=== PATIENT | male | born 2000 | race Hispanic/Latino ===

== ENCOUNTER 2021-06-20 14:26 | Emergency (ER) | payer OTHER ==
[2021-06-20 15:45] LABS: Urine Blood Negative (Negative); Urine Glucose Negative (Negative); Urine Protein Negative (Negative); Urine Specific Gravity >=1.030 (1.005-1.030)
--- NOTE | 2021-06-20 15:46 | ER ---
Nurse's Notes [facility] Name: Richard Leavitt Age: 21 yrs Sex: Male : 2000 Arrival Date: 06/20/2021 Time: 14:30 Bed Treatment Private MD: Diagnosis: Sciatica, right side Presentation: 06/20 14:54 Chief complaint: Patient states: "For a few days I have had right low back pain and it ab2 shoots down my right leg to my knee and sometimes to my foot." Pt denies any injury. Coronavirus screen: Vaccine status: Patient reports being unvaccinated. Client denies travel out of the [place] in the last 14 days. At this time, the client does not indicate any symptoms associated with coronavirus-19. Ebola Screen: Patient negative for fever greater than or equal to 101.5 degrees Fahrenheit, and additional compatible Ebola Virus Disease symptoms Patient denies exposure to infectious person. Patient denies travel to an Ebola-affected area in the 21 days before illness onset. No symptoms or risks identified at this time. Initial Sepsis Screen: Does the patient meet any 2 criteria? No. Patient's initial sepsis screen is negative. Does the patient have a suspected source of infection? No. Patient's initial sepsis screen is negative. Risk Assessment: Do you want to hurt yourself or someone else? Patient reports no desire to harm self or others. Onset of symptoms is unknown. 14:54 Method Of Arrival: Ambulatory ab2 14:54 Acuity: GEMMA 4 ab2 Triage Assessment: 14:55 General: Appears in no apparent distress. uncomfortable, Behavior is calm, cooperative, ab2 appropriate for age. Pain: Complains of pain in right low back Pain radiates to right leg Pain currently is 10 out of 10 on a pain scale. Neuro: Level of Consciousness is awake, alert, obeys commands, Oriented to person, place, time, situation, Appropriate for age Mortgage Operations Manager are equal bilaterally Moves all extremities. Gait is steady, Speech is normal, Facial symmetry appears normal, Pupils are PERRLA, Intact. Cardiovascular: No deficits noted. Denies chest pain, shortness of breath, Patient's skin is warm and dry. Respiratory: Airway is patent Respiratory effort is even, unlabored, Respiratory pattern is regular, symmetrical. GI: No deficits noted. No signs and/or symptoms were reported involving the gastrointestinal system. : No deficits noted. No signs and/or symptoms were reported regarding the genitourinary system. Derm: Skin is intact, Skin is Skin is pink, warm \\T\\ dry. Musculoskeletal: Range of motion: intact in all extremities, Reports pain in back. Historical: - Allergies: 14:55 No Known Allergies; ab2 - PMHx: 14:55 None; ab2 - PSHx: 14:55 None; ab2 - Immunization history:: Adult Immunizations up to date. - Social history:: Smoking status: Patient denies any tobacco usage or history of. Screenin:00 Abuse screen: Denies threats or abuse. Denies injuries from another. Nutritional ab2 screening: No deficits noted. Tuberculosis screening: No symptoms or risk factors identified. Fall Risk None identified. Assessment: 16:00 General: Appears in no apparent distress. comfortable, Behavior is calm, cooperative, ab2 appropriate for age. Pain: Complains of pain in right hamstring and right leg. Neuro: Level of Consciousness is awake, alert, obeys commands, Oriented to person, place, time, situation, Appropriate for age Mortgage Operations Manager are equal bilaterally Moves all extremities. Gait is steady, Speech is normal, Facial symmetry appears normal. Cardiovascular: No deficits noted. Denies chest pain, shortness of breath. Respiratory: Airway is patent Respiratory effort is even, unlabored, Respiratory pattern is regular, symmetrical. GI: No deficits noted. No signs and/or symptoms were reported involving the gastrointestinal system. : No deficits noted. No signs and/or symptoms were reported regarding the genitourinary system. Vital Signs: 14:54 BP 138 / 96; Pulse 77; Resp 16; Temp 98.1(TE); Pulse Ox 100% on R/A; Weight 79.38 kg; ab2 Height 5 ft. 7 in. (170.18 cm); Pain 10/10; 16:01 BP 127 / 83; Pulse 73; Resp 16; Pulse Ox 99% on R/A; ab2 14:54 Body Mass Index 27.41 (79.38 kg, 170.18 cm) ab2 ED Course: 14:30 Patient arrived in ED. ds1 14:55 Triage completed. ab2 14:56 Arm band placed on right wrist. ab2 15:19 Geoffrey Vasquez MD is Attending Physician. [facility] 15:19 Annabel Malone FNP-C is [facility]. kb 15:25 Susannah Mendoza, RN is Primary Nurse. 16:01 Patient has correct armband on for positive identification. Bed in low position. Side ab2 rails up X2. 16:01 No provider procedures requiring assistance completed. Patient did not have IV access ab2 during this emergency room visit. Administered Medications: No medications were administered Outcome: 15:46 Discharge ordered by . kb 16:01 Discharged to home ambulatory. ab2 16:01 Condition: good 16:01 Discharge instructions given to patient, family, Instructed on discharge instructions, follow up and referral plans. Demonstrated understanding of instructions, follow-up care. 16:01 Patient left the ED. ab2 Signatures: Annabel Malone FNP-C SPECIAL MAKEUP FX ARTIST INSTRUCTOR-Ckb Geoffrey Vasquez MD MD cha Sanford, Katia ds1 Susannah Mendoza, RN RN Juan R Mina ab2
--- NOTE | 2021-06-20 15:46 | EDPHYS ---
Physician Documentation [facility] Name: Richard Leavitt Age: 21 yrs Sex: Male : 2000 Arrival Date: 06/20/2021 Time: 14:30 Bed Treatment Private MD: ED Physician Geoffrey Vasquez HPI: 06/20 15:45 This 21 yrs old Male presents to ER via Ambulatory with complaints of Back kb Pain. 15:45 The patient presents with pain that is acute, with no known mechanism of injury. The kb symptoms are located in the right low back. Onset: The symptoms/episode began/occurred 3 week(s) ago, and became worse yesterday. The pain radiates to the right hamstring. Associated signs and symptoms: The patient has no apparent associated signs or symptoms. The problem was sustained from unknown cause. Modifying factors: The patient symptoms are alleviated by nothing, the patient symptoms are aggravated by any movement. Severity of symptoms: At their worst the symptoms were moderate, in the emergency department the symptoms are unchanged. The patient has not experienced similar symptoms in the past. The patient has not recently seen a physician. Historical: - Allergies: 14:55 No Known Allergies; ab2 - PMHx: 14:55 None; ab2 - PSHx: 14:55 None; ab2 - Immunization history:: Adult Immunizations up to date. - Social history:: Smoking status: Patient denies any tobacco usage or history of. ROS: 15:44 Constitutional: Negative for fever, chills, and weight loss. kb 15:44 Back: Positive for of the right low back. 15:44 All other systems are negative. Exam: 15:44 Constitutional: This is a well developed, well nourished patient who is awake, alert, kb and in no acute distress. Head/Face: Normocephalic, atraumatic. ENT: Moist Mucous membranes Respiratory: Respirations even and unlabored. No increased work of breathing. Talking in full sentences Abdomen/GI: Soft, non-tender. No distention Skin: Warm, dry with normal turgor. Normal color. MS/ Extremity: Pulses equal, no cyanosis. Neurovascular intact. Full, normal range of motion. Neuro: Awake and alert, GCS 15, oriented to person, place, time, and situation. Moves all extremities. Normal gait. Psych: Awake, alert, with orientation to person, place and time. Behavior, mood, and affect are within normal limits. 15:44 Back: pain, that is moderate, of the right low back, ROM is normal, normal spinal alignment noted, CVA tenderness, is absent. Vital Signs: 14:54 BP 138 / 96; Pulse 77; Resp 16; Temp 98.1(TE); Pulse Ox 100% on R/A; Weight 79.38 kg; ab2 Height 5 ft. 7 in. (170.18 cm); Pain 10/10; 16:01 BP 127 / 83; Pulse 73; Resp 16; Pulse Ox 99% on R/A; ab2 14:54 Body Mass Index 27.41 (79.38 kg, 170.18 cm) ab2 MDM: 15:19 Patient medically screened. kavon 15:45 Data reviewed: vital signs, nurses notes. Data interpreted: Pulse oximetry: on room air kb is 100 %. Interpretation: normal. Counseling: I had a detailed discussion with the patient and/or guardian regarding: the historical points, exam findings, and any diagnostic results supporting the discharge/admit diagnosis, lab results, the need for outpatient follow up, a family practitioner, to return to the emergency department if symptoms worsen or persist or if there are any questions or concerns that arise at home. 06/20 15:45 Order name: Urine Dipstick-Ancillary; Complete Time: 15:45 EDMS 06/20 15:24 Order name: Urine Dipstick-Ancillary (obtain specimen); Complete Time: 15:44 kb Administered Medications: No medications were administered Disposition Summary: 06/20/21 15:46 Discharge Ordered Location: Home kb Condition: Stable kb Diagnosis - Sciatica, right side kb Followup: kb - With: Emergency Department - When: As needed - Reason: Worsening of condition Followup: kb - With: Private Physician - When: 2 - 3 days - Reason: Recheck today's complaints, Continuance of care, Re-evaluation by your physician Discharge Instructions: - Discharge Summary Sheet kb - Sciatica, [id number] kb - Back Exercises, [id number] kb Forms: - Medication Reconciliation Form kb - Thank You Letter kb - Antibiotic Education kb - Prescription Opioid Use kb Prescriptions: - Cyclobenzaprine 10 mg Oral Tablet - take 1 tablet by ORAL route every 8 hours As needed; 15 tablet; Refills: 0, kb Product Selection Permitted - Diclofenac Sodium 75 mg Oral tablet,delayed release (DR/EC) - take 1 tablet by ORAL route 2 times per day As needed; 30 tablet; Refills: 0, kb Product Selection Permitted Signatures: Annabel Malone, LUCAS LOJA-Geoffrey Camilo MD MD cha Bleininger, Alexis ab2
[2021-06-20 17:39] VITALS: TEMP 98.1
[2021-06-20 17:41] VITALS: BP 127/83; O2SAT 99
== END 2021-06-20 16:01 | disposition home or self-care (01) ==
LOC: ER 14:26
DX: M54.31 Sciatica, right side (principal)
CPT/HCPCS: 81003; 99281

== ENCOUNTER 2022-08-16 18:56 | Emergency (ER) | payer SELFPAY ==
[2022-08-16] MEDS ORDERED: FLUORESCEIN SODIUM 1 MG/WRAP ONE (19:50)
[2022-08-16] MEDS ORDERED: TETRACAINE HCL 0.5% 4ML OPTH ONE (19:50)
--- NOTE | 2022-08-16 20:55 | RAD REPORT ---
EXAM DESCRIPTION: Skull <4 Views - 08/16/2022 8:45 pm CLINICAL HISTORY: FB to left eye COMPARISON: No comparisons TECHNIQUE: Four views of the skull. FINDINGS: There is no displace fracture. Faint rounded low-density structure with 2 punctate radiode nsities at its periphery, projecting along the medial aspect of the left globe on the AP view, could relate to a foreign body. Normal configuration of the sella turcica. To the extent evaluated, the vis ualized paranasal sinuses are clear. IMPRESSION: Radiodensities projecting along the medial aspect of the left lobe, could relate to fore ign bodies as above.
--- NOTE | 2022-08-16 22:33 | ER ---
Nurse's Notes [facility] Name: Richard Leavitt Age: 22 yrs Sex: Male : 2000 Arrival Date: 08/16/2022 Time: 18:56 Bed 20 Private MD: Diagnosis: Foreign body embedded in the left orbit Presentation: 08/16 19:24 Chief complaint: Patient states: I was using the wire brush and a wire bristle got in aa9 my left eye, I pulled it out and did bleed. 3/10 pain, my vision is cloudy. Coronavirus screen: Vaccine status: Patient reports being unvaccinated. Ebola Screen: No symptoms or risks identified at this time. The patient denies any loss of vision. Initial Sepsis Screen: Does the patient meet any 2 criteria? No. Patient's initial sepsis screen is negative. Does the patient have a suspected source of infection? No. Patient's initial sepsis screen is negative. Risk Assessment: Do you want to hurt yourself or someone else? Patient reports no desire to harm self or others. Risk Assessment: Do you want to hurt yourself or someone else? Patient reports no desire to harm self or others. Onset of symptoms was August 16, 2022. 19:24 Method Of Arrival: Ambulatory aa9 19:24 Acuity: GEMMA 3 aa9 Triage Assessment: 19:26 General: Appears uncomfortable, Behavior is calm, cooperative. Pain: Complains of pain aa9 in left eye. EENT: Eyes left eye redness. Neuro: Level of Consciousness is awake, alert, obeys commands, Oriented to person, place, time, situation. Respiratory: Airway is patent Respiratory effort is even, unlabored. Historical: - Allergies: 19:26 No Known Allergies; aa9 - Home Meds: 19:26 None [Active]; aa9 - PMHx: 19:26 None; aa9 - PSHx: 19:26 None; aa9 - Immunization history:: Client reports having NOT received the Covid vaccine. - Social history:: Smoking status: Patient denies any tobacco usage or history of. Screenin:17 [facility] ED Fall Risk Assessment (Adult) History of falling in the last 3 months, ll3 including since admission No falls in past 3 months (0 pts) Confusion or Disorientation No (0 pts) Intoxicated or Sedated No (0 pts) Impaired Gait No (0 pts) Mobility Assist Device Used No (0 pt) Altered Elimination No (0 pt) Score/Fall Risk Level 0 - 2 = Low Risk Oriented to surroundings, Maintained a safe environment, Educated pt \T\ family on fall prevention, incl call for assistance when getting out of bed. Abuse screen: Denies threats or abuse. Denies injuries from another. Nutritional screening: No deficits noted. Tuberculosis screening: No symptoms or risk factors identified. Assessment: 20:18 General: Appears uncomfortable, Behavior is calm, cooperative. Pain: Complains of pain ll3 in left eye. Neuro: Level of Consciousness is awake, alert, obeys commands, Oriented to person, place, time, situation. EENT: Sclera/Cornea are reddened in inner aspect of conjunctiva of left eye. Derm: Skin is pink, warm \T\ dry. Vital Signs: 19:24 BP 143 / 86; Pulse 83; Resp 17; Temp 98.7; Pulse Ox 96% ; Weight 81.65 kg; Height 5 ft. aa9 7 in. ; Pain 3/10; 20:44 BP 139 / 87; Pulse 83; Resp 16; Pulse Ox 99% on R/A; ll3 22:32 BP 123 / 83; Pulse 81; Resp 16; Pulse Ox 99% on R/A; ll3 23:39 BP 115 / 71; Pulse 74; Resp 16; Pulse Ox 98% on R/A; ll3 19:24 Body Mass Index 28.19 (81.65 kg, 170.18 cm) aa9 19:24 Pain Scale: Adult aa9 Visual Acuity: 20:17 Left Eye Visual acuity 20/50, ; Right Eye Visual acuity 20/40, ; Without Lenses; ll3 ED Course: 18:59 Patient arrived in ED. mr 19:26 Triage completed. aa9 19:27 Devin Norris MD is Attending Physician. kdr 19:27 Arm band placed on right wrist. aa9 20:17 Patient has correct armband on for positive identification. Bed in low position. Call ll3 light in reach. Side rails up X 1. Adult w/ patient. 20:18 No provider procedures requiring assistance completed. ll3 20:47 Skull (<4 Views) XRAY: Need AP and lateral In Process Unspecified. EDMS 23:39 Patient did not have IV access during this emergency room visit. ll3 Administered Medications: 20:37 Drug: Fluorescein Ophthalmic Strip 1 strip Route: Ophthalmic; Site: left eye; ll3 23:38 Follow up: Response: No adverse reaction ll3 20:37 Drug: Tetracaine Ophthalmic Drops 0.5 % 1 drops Route: Ophthalmic; Site: left eye; ll3 23:39 Follow up: Response: No adverse reaction ll3 Medication: 20:18 VIS not applicable for this client. ll3 Outcome: 22:32 ER care complete, transfer ordered by . kdr 23:39 Transferred by ground EMS to [facility], Transfer form completed. X-rays sent ll3 w/ patient. 23:39 Condition: stable 23:39 Discharge instructions given to patient, EMS, Instructed on the need for transfer, Demonstrated understanding of instructions. 23:40 Patient left the ED. ll3 Signatures: Dispatcher [employer] EDMS Devin Norris MD MD [facility] Cheyanne Almaguer Miguel Angel Cotter RN RN ll3 Ileana Styles RN RN aa9
--- NOTE | 2022-08-16 22:33 | EDPHYS ---
Physician Documentation [facility] Name: Richard Leavitt Age: 22 yrs Sex: Male : 2000 Arrival Date: 08/16/2022 Time: 18:56 Bed 20 Private MD: ED Physician Devin Norris HPI: 08/16 19:54 This 22 yrs old Male presents to ER via Ambulatory with complaints of Eye kdr Injury. 19:54 The patient is experiencing foreign body sensation, pain, redness, The patient kdr sustained a puncture. Onset: The symptoms/episode began/occurred suddenly, 2 hour(s) ago. Duration: the symptoms are continuous. Aggravated by nothing. Alleviated by nothing. Associated signs and symptoms: Pertinent positives: None. Pertinent negatives: None. Severity of symptoms: At their worst the symptoms were very mild in the emergency department the symptoms are unchanged. The patient has not experienced similar symptoms in the past. The patient has not recently seen a physician. Historical: - Allergies: 19:26 No Known Allergies; aa9 - Home Meds: 19:26 None [Active]; aa9 - PMHx: 19:26 None; aa9 - PSHx: 19:26 None; aa9 - Immunization history:: Client reports having NOT received the Covid vaccine. - Social history:: Smoking status: Patient denies any tobacco usage or history of. ROS: 19:54 Constitutional: Negative for fever, chills, and weight loss, ENT: Negative for injury, kdr pain, and discharge, Neck: Negative for injury, pain, and swelling. 19:54 Eyes: Positive for foreign body sensation, pain, of the inner aspect of conjunctiva of left eye. Exam: 19:54 Constitutional: This is a well developed, well nourished patient who is awake, alert, kdr and in no acute distress. Head/Face: Normocephalic, atraumatic. 19:54 Eyes: Periorbital structures: appear normal, Pupils: equal, round, and reactive to light and accomodation, Extraocular movements: no acute changes, Conjunctiva: normal, Corneas: are normal, Sclera: abrasion, of the medial aspect of conjunctiva of left eye -there appears to be several small filamentous foreign bodies at the edge of the cornea at the a 9 o'clock position. The possoible FB were \T\ 9:00, Anterior chamber: normal, Examination of the other eye reveals no obvious gross abnormality. Vital Signs: 19:24 BP 143 / 86; Pulse 83; Resp 17; Temp 98.7; Pulse Ox 96% ; Weight 81.65 kg; Height 5 ft. aa9 7 in. ; Pain 3/10; 20:44 BP 139 / 87; Pulse 83; Resp 16; Pulse Ox 99% on R/A; ll3 22:32 BP 123 / 83; Pulse 81; Resp 16; Pulse Ox 99% on R/A; ll3 23:39 BP 115 / 71; Pulse 74; Resp 16; Pulse Ox 98% on R/A; ll3 19:24 Body Mass Index 28.19 (81.65 kg, 170.18 cm) aa9 19:24 Pain Scale: Adult aa9 Visual Acuity: 20:17 Left Eye Visual acuity 20/50, ; Right Eye Visual acuity 20/40, ; Without Lenses; ll3 Procedures: 19:54 Foreign Body Removal: Wire brush filaments from a grinding process, from the left eye, kdr conjunctiva by using a cotton-tipped swab. MDM: 19:54 Data reviewed: vital signs, nurses notes. kdr 22:32 Patient medically screened. kdr 08/16 19:54 Order name: Skull (<4 Views) XRAY: Need AP and lateral; Complete Time: 21:14 kdr 08/16 20:00 Order name: Visual Acuity; Complete Time: 20:20 kdr Administered Medications: 20:37 Drug: Fluorescein Ophthalmic Strip 1 strip Route: Ophthalmic; Site: left eye; ll3 23:38 Follow up: Response: No adverse reaction ll3 20:37 Drug: Tetracaine Ophthalmic Drops 0.5 % 1 drops Route: Ophthalmic; Site: left eye; ll3 23:39 Follow up: Response: No adverse reaction ll3 Disposition Summary: 08/16/22 22:32 Transfer Ordered Transfer Location: [facility] kdr Reason: Higher level of care kdr Condition: Fair kdr Problem: new kdr Symptoms: are unchanged kdr Accepting Physician: Dr. Thakur(08/16/22 23:40) ll3 Diagnosis - Foreign body embedded in the left orbit kdr Forms: - Medication Reconciliation Form kdr - SBAR form kdr Signatures: Dispatcher [employer] EDNY Rittger, MD MD jacquie Beltran Lynsea RN RN ll3 Valarie Montelongo RN RN kd3 Ileana Styles RN RN aa9 Corrections: (The following items were deleted from the chart) 23:40 22:32 Dr. Blaze dhillon ll3
[2022-08-17 00:45] VITALS: TEMP 98.7
[2022-08-17 00:49] VITALS: BP 115/71; O2SAT 98
== END 2022-08-16 23:40 | disposition short-term general hospital (02) ==
LOC: ER 18:56
PROC: 08CTXZZ Extirpation of Matter from Left Conjunctiva, External Approach (ICD-10-PCS; principal; 2022-08-16)
DX: S05.42XA Penetrating wound of orbit with or without foreign body, left eye, initial encounter (principal)
CPT/HCPCS: 70250; 99285